=== PATIENT | male | born 2000 | race Caucasian/White ===

== ENCOUNTER 2023-07-18 16:50 | Emergency (ER) | payer OTHER ==
[~2023-07-18] VITALS: Ht 193 cm; Wt 97.7 kg
[2023-07-18 16:59] VITALS: TEMP 98.9
[2023-07-18] MEDS ORDERED: Acetaminophen 325 MG TAB PO ONE (18:45)
[2023-07-18] MEDS ORDERED: Ibuprofen 400 MG TAB PO ONE (18:45)
[2023-07-18 18:50] VITALS: BP 139/78; PULSE 87
== END 2023-07-18 19:31 | disposition home or self-care (01) ==
LOC: COL.ER 16:50
DX: S62.396A Other fracture of fifth metacarpal bone, right hand, initial encounter for closed fracture (principal); W22.09XA Striking against other stationary object, initial encounter